=== PATIENT | male | born 1985 | race Two or more races ===

== ENCOUNTER 2019-11-23 12:53 | Outpatient (CLI) | payer OTHER ==
[~2019-11-23] VITALS: Ht 182.9 cm; Wt 122.5 kg
[2019-11-23] MEDS ORDERED: FLONASE16 GM NASAL (13:03)
== END 2019-11-23 13:13 | disposition home or self-care (01) ==
LOC: OFIC 805 12:53
PROVIDERS: ATTEND Otolaryngology
DX: M26.69 Other specified disorders of temporomandibular joint (principal); R09.81 Nasal congestion; J30.89 Other allergic rhinitis

== ENCOUNTER 2019-11-23 13:40 | Outpatient (CLI) | payer OTHER ==
[~2019-11-23 13:40] MED LIST: FLONASE16 GM NASAL
== END 2019-11-23 13:41 | disposition home or self-care (01) ==
LOC: TOM 13:40
PROVIDERS: ATTEND Otolaryngology
DX: S03.00XA Dislocation of jaw, unspecified side, initial encounter (principal)

== ENCOUNTER 2019-12-28 10:36 | Outpatient (CLI) | payer OTHER | END 2019-12-28 11:30 | disposition home or self-care (01) | LOC: OFIC 805 10:36 | PROVIDERS: ATTEND Otolaryngology | DX: R09.81 Nasal congestion (principal); J30.89 Other allergic rhinitis; M26.69 Other specified disorders of temporomandibular joint ==

== ENCOUNTER 2020-01-25 08:44 | Outpatient (CLI) | payer OTHER ==
[2020-01-25] MEDS ORDERED: SINGULAIR10 MG PO (10:45)
[2020-01-25] MEDS ORDERED: AZELASTIN-FLUTI23 GM NASAL (10:45)
== END 2020-01-25 18:58 | disposition home or self-care (01) ==
LOC: OFIC 805 08:44
PROVIDERS: ATTEND Otolaryngology
DX: J30.89 Other allergic rhinitis (principal); R09.81 Nasal congestion; M26.69 Other specified disorders of temporomandibular joint

== ENCOUNTER → 2020-03-07 | Outpatient (CLI) | payer OTHER ==
[~2020-03-07] MED LIST changes: +AZELASTIN-FLUTI23 GM NASAL; +SINGULAIR10 MG PO
== END | disposition home or self-care (01) ==
LOC: OFIC 805 10:00
PROVIDERS: ATTEND Otolaryngology
DX: R09.81 Nasal congestion (principal); J30.89 Other allergic rhinitis; M26.69 Other specified disorders of temporomandibular joint